=== PATIENT | female | born 2005 | race Caucasian/White ===

== ENCOUNTER 2024-02-02 10:14 | Emergency (ER) | payer BC | END 2024-02-02 11:30 | disposition home or self-care (01) | LOC: MW.ED 10:14 | DX: Z18.9 Retained foreign body fragments, unspecified material (principal); Z88.0 Allergy status to penicillin; Z75.8 Other problems related to medical facilities and other health care | CPT/HCPCS: 99283 ==

== ENCOUNTER 2024-04-27 18:36 | Emergency (ER) | payer BC ==
[2024-04-27] MEDS: Lidocaine 1% PF 2 ML SDV INJECT ONE (19:47)
== END 2024-04-27 20:00 | disposition home or self-care (01) ==
LOC: MW.ED 18:36
DX: S61.411A Laceration without foreign body of right hand, initial encounter (principal); Z88.0 Allergy status to penicillin; W26.0XXA Contact with knife, initial encounter
CPT/HCPCS: 12001; 99282; J3490